=== PATIENT | female | born 1990 | race Two or more races ===

== ENCOUNTER 2018-05-11 02:04 | Emergency (ER) | payer BC ==
[~2018-05-11] VITALS: Ht 160 cm; Wt 79.4 kg
[2018-05-11 03:31] LABS: Basophils # (auto) 0 uL; Eosinophils # (auto) 0 uL; Eosinophils % (auto) 0.2 % (0.0-7.0); Hemoglobin 11.6 g/dL (12.2-16.2); Lymphocytes # (auto) 0.8 uL; Monocytes # (auto) 0.9 uL; Monocytes % (auto) 4.9 % (0.0-12.0)
[2018-05-11 03:32] LABS: Basophils % (auto) 0.1 % (0.0-2.0); Hematocrit 35.9 % (36.0-46.0); Lymphocytes % (auto) 4.4 % (10.0-50.0); Mean Corpuscular Hemoglobin 30.6 pg (28.0-32.0); Mean Corpuscular Hgb Conc. 32.2 g/dL (32.0-36.0); Neutrophils # (auto) 15.6 uL; Neutrophils % (auto) 90.4 % (37.0-80.0); Red Blood Cells 3.78 10^6/uL (4.0-5.20); Red Cell Distribution Width 14.4 % (11.8-14.3); White Blood Cell 17.3 10^3/uL (4.4-10.8)
[2018-05-11 03:35] LABS: Platelet Count (auto) 490 10^3/uL (140-450)
[2018-05-11 03:39] LABS: Urine Bacteria FEW /hpf (None Seen); Urine Blood Negative /uL (Negative); Urine Mucus FEW (None Seen); Urine Specific Gravity 1.024 (1.001-1.035); Urine WBC 358 /hpf (0 - 5); Urine WBC Clumps PRESENT /hpf (None Seen)
[2018-05-11 03:49] LABS: Albumin 3.4 g/dL (3.4-5.0); BUN/Creatinine Ratio 21.5; Calcium 8.8 mg/dL (8.5-10.1); Potassium 3.9 mmol/L (3.5-5.1)
[2018-05-11 03:52] LABS: Bilirubin, Total 0.6 mg/dL (0.2-1.0); Total Protein 7.6 g/dL (6.4-8.2)
[2018-05-11 07:22] VITALS: BP 108/64
== END 2018-05-11 08:06 | disposition home or self-care (01) ==
LOC: ER 02:04
DX: N39.0 Urinary tract infection, site not specified (principal)
CPT/HCPCS: 36415; 74176; 80053; 81001; 82150; 83690; 85025